=== PATIENT | male | born 1990 | race African-American/Black ===

== ENCOUNTER 2019-09-16 17:43 | Emergency (ER) | payer OTHER ==
[~2019-09-16] VITALS: Ht 182.9 cm; Wt 63.5 kg
[2019-09-16 17:55] VITALS: BP 126/80
--- NOTE | 2019-09-16 17:55 | NUR ---
ED Nurse Note: pt. walkwed in to er from home. per pt. he is here due to right side chest pain since yesterday;patient [place] the [place] when he started having the pain; reports no N/V or SOB; denies any drug or alcohol use. reports no heavy lifting or injury. Increased pain with palpation.
--- NOTE | 2019-09-16 18:39 | Emergency Room Report ---
History of Present Illness General Chief Complaint: Chest Pain Source: Patient Present Illness HPI 29 YO male presents to the ED c/o 03/13 in severity CP that is intermittent, moved from left anterior side of chest to the right side. first episode of CP was [place] the mall. Denies pain at rest. Reports tenderness to palpation. Pt. also reports several episodes of REINOSO's that last approx 30-45 Mins before resolving. he describes Tightness around his forehead and the top of his head. He denies hx of migraines. He denies sudden onset of his REINOSO's. He denies blurry vision, loss of vision or changes in his vision. He reports staring at bright screens will illicit his headaches at times. he is supposed to have corrective lenses but does not have an knit tubing dyer anymore. He denies neck pain or stiffness, nausea or vomiting. He reports lying in a dark quiet room helps to alleviate his REINOSO.He denies fevers or chills. He denies cough. Pt. reports at onset of his symptoms he was emotionally worked up. Denies cardiac hx. Pmhx only significant for asthma which he states he rarely has. He reports he has had some body aches the last few days. Pt. not vaccinated for flu. Pt. reports he is not currently having any of his symptoms at the moment. Denies numbness tingling or loss of sensation or gross motor movements of the extremities, incontinence of bowel or bladder. Denies dyspnea, palpitations, LOC, AMS, dizziness, Changes in Vision, weakness or a sudden severe headache. Denies recent travel. Denies calf pain. Allergies: Coded Allergies: No Known Allergies (Unverified , 09/16/19) Patient History Past Medical History: see triage record, asthma Past Surgical History: none Pertinent Family History: none Social History: Reports: smoking - previous smoker Reviewed Nursing Documentation: PMH: Agreed; PSxH: Agreed Nursing Documentation-PMH Past Medical History: No History, Except For Hx Cardiac Problems: No Hx Hypertension: No Hx Pacemaker: No Hx Asthma: Yes Hx COPD: No Hx Diabetes: No Hx Cancer: No Hx Gastrointestinal Problems: No Hx Dialysis: No History Of Psychiatric Problem: No Hx Neurological Problems: No Hx Cerebrovascular Accident: No Hx Seizures: No Review of Systems All Other Systems: negative except mentioned in HPI Physical Exam Vital Signs Date Time Temp Pulse Resp B/P (MAP) Pulse Ox O2 Delivery O2 Flow Rate FiO2 09/16/19 17:55 98.2 79 16 126/80 99 Room Air Sp02 EP Interpretation: reviewed, normal General Appearance: no apparent distress, alert, GCS 15, non-toxic Head: normocephalic, atraumatic Eyes: bilateral eye normal inspection, bilateral eye PERRL, bilateral eye other - no photophobia ENT: hearing grossly normal, normal voice Neck: full range of motion, no meningismus Respiratory: lungs clear, normal breath sounds, no respiratory distress, no accessory muscle use, no wheezing, speaking full sentences, other - chest tender in the right pectoralis muscle Cardiovascular #1: regular rate, rhythm, no edema Musculoskeletal: normal range of motion, gait/station normal, non-tender Neurologic: alert, motor strength/tone normal, oriented x3, sensory intact, responsive, speech normal, other - No, pronator drift, Negative rhomberg, normal finger to nose, NO hemanopia on confrontation. No nystagmus, both eyes able to cross the midline. visual cárdenas equal to examiners, No facial droop, equal forest products teacher strength bilaterally. Psychiatric: judgement/insight normal Lymphatic: no adenopathy Medical Decision Making PA Attestation Dr. Teresa Is my supervising Physician whom patient management has been discussed with. Diagnostic Impression: Primary Impression: Acute nonspecific chest pain with low risk of coronary artery disease Additional Impression: Head ache Qualified Codes: G44.209 - Tension-type headache, unspecified, not intractable ER Course 29 YO male presents to the ED c/o 03/13 in severity CP that is intermittent, moved from left anterior side of chest to the right side. first episode of CP [place] the mall. Denies pain at rest. Reports tenderness to palpation. Pt. also reports several episodes of REINOSO's that last approx 30-45 Mins before resolving. he describes Tightness around his forehead and the top of his head. He denies hx of migraines. He denies sudden onset of his REINOSO's. He denies blurry vision, loss of vision or changes in his vision. He reports staring at bright screens will illicit his headaches at times. he is supposed to have corrective lenses but does not have an knit tubing dyer anymore. He denies neck pain or stiffness, nausea or vomiting. He reports lying in a dark quiet room helps to alleviate his REINOSO.He denies fevers or chills. He denies cough. Pt. reports at onset of his symptoms he was emotionally worked up. Denies cardiac hx. Pmhx only significant for asthma which he states he rarely has. He reports he has had some body aches the last few days. Pt. not vaccinated for flu. Pt. reports he is not currently having any of his symptoms at the moment. Denies numbness tingling or loss of sensation or gross motor movements of the extremities, incontinence of bowel or bladder. Denies dyspnea, palpitations, LOC, AMS, dizziness, Changes in Vision, weakness or a sudden severe headache. Denies recent travel. Denies calf pain. Ddx considered but are not limited to SD, pneumonia, contusion, costochondritis , PE, ACS, Shoulder strain, Chest wall contusion. aortic dissection. Migraine, tension headache, generalized headache, SAH, meningitis, pseudomotor cerebri, just to name a few Vital signs: are WNL, pt. is afebrile H&PE are most consistent with nonspecific reproducible CP, and REINOSO that is most descriptive of a tension REINOSO. No focal neurological deficits on exam. --The patient does not demonstrate any focal neurological deficits, and is not experiencing headache symptoms at this time. ORDERS: - EKG:NSR 70 BPM -CBC CXR: WNL- hyperinflated lungs. ED INTERVENTIONS: - none required at this time. -I do not identify an emergent condition at this time. With current presentation , pt. is stable for close outpatient follow up and conservative treatment. D/ w pt. to return promptly to ED with worsening or new symptoms.- Pt. verbalizes' understanding and agreement with proposed treatment plan. DISCHARGE: At this time pt. is stable for d/c to home. Will provide printed patient care instructions, and any necessary prescriptions. Care plan and follow up instructions have been discussed with the patient prior to discharge. EKG Diagnostic Results EP Interpretation: Dr. Teresa Rate: normal - 70 Rhythm: NSR ST Segments: no acute changes ASA given to the pt in ED: No PA Scribe Text This Interpretation was scribed by VISH Welch. Chest X-Ray Diagnostic Results Chest X-Ray Diagnostic Results : Chest X-Ray Ordered: Yes # of Views/Limited/Complete: 1 View Indication: Chest Pain EP Interpretation: Yes PA Xray: Interpretation reviewed, by supervising MD, and agrees with findings. Interpretation: no consolidation, no effusion, no pneumothorax, no acute cardiopulmonary disease, other - hyperinflated lungs-mild Impression: No acute disease Electronically Signed by: Petra Welch PA-C Last Vital Signs Date Time Temp Pulse Resp B/P (MAP) Pulse Ox O2 Delivery O2 Flow Rate FiO2 09/16/19 18:02 79 16 Room Air 09/16/19 17:55 98.2 126/80 (95) 99 Disposition: HOME, SELF-CARE Condition: Stable Scripts Ibuprofen* (MOTRIN*) 400 Mg Tablet 400 MG ORAL THREE TIMES A DAY, #30 TAB 0 Refills Prov: Petra Welch 09/16/19 Aspirin/Acetaminophen/Caffeine (EXCEDRIN MIGRAINE GELTAB) 1 Each Tablet 1 EACH PO Q6HR, #20 TAB Prov: Petra Welch 09/16/19 Patient Instructions: General Headache Without Cause, Eroo-im-Reva, Nonspecific Chest Pain, Tension Headache Additional Instructions: Take medications as directed. Follow up with a Primary Care Provider in 3-5 days For a referral to have NEUROLOGIST Evaluation, even if your symptoms have resolved. --Please review list of primary care clinics, if you do not already have a primary care provider Return sooner to ED if new symptoms occur, or current symptoms become worse. - Please note that this Emergency Department Report was dictated using [employer] attendant technology software, occasionally this can lead to erroneous entry secondary to interpretation by the dictation equipment. [email or web address] [address] [address] [place] speaking line Fax 8:00 am - 4:00 pm Petra Welch Sep 16, 2019 18:39
[2019-09-16] MEDS ORDERED: EXCEDRIN MIGRA1 EACH PO (18:44)
[2019-09-16] MEDS ORDERED: IBUPROFEN400 MG ORAL (18:44)
[2019-09-16 18:54] VITALS: BP 125/75
--- NOTE | 2019-09-16 18:54 | NUR ---
ER DISCHARGE NOTE: Patient is cleared to be discharged per PA, pt is aox4, on room air, with stable vital signs. pt was given dc and prescription instructions, pt was able to verbalize understanding, pt id band removed. pt is able to ambulate with steady gait. pt took all belongings.
--- NOTE | 2019-09-17 12:41 | Diagnostic Imaging Report ---
Indication: Chest pain Comparison: None A single view chest radiograph was obtained. Findings: Cardiomediastinal appearance is within normal limits for age. The lungs are clear. Pulmonary vascularity is appropriate. The diaphragmatic contour is smooth and costophrenic angles are sharp. No pleural effusions are identified. The bones are unremarkable. Impression: No acute findings
== END 2019-09-16 18:54 | disposition home or self-care (01) ==
LOC: EMR 18:05
DX: R07.9 Chest pain, unspecified (principal); G44.209 Tension-type headache, unspecified, not intractable
CPT/HCPCS: 71045; 93005; Z7502; 99283